=== PATIENT | female | born 1980 | race Hispanic/Latino ===

== ENCOUNTER 2019-12-28 15:19 | Day surgery (SDC) | payer OTHER ==
[2019-12-28 15:48] VITALS: BMI 34.7
[2019-12-28] MEDS ORDERED: hydrALAZINE 20 MG/ML VIAL SLOW IVP PRN (16:05)
--- NOTE | 2019-12-28 16:10 | PDOC.FPROB ---
FMR OB H&P: HPI - History of Present Illness Chief Complaint: Nausea, vomiting, diarrhea Indentification: 39yo at 33wks History of Present Illness: 39yo at 33wks presents for nausea, vomiting and diarrhea since 0330 this morning. Reports 3 episodes of vomiting, 10 episodes of nonbloody watery diarrhea. Denies recent travel, exposure to sick contacts, recent antibiotics, exposure to new foods. Denies fever. Endorses FM. Denies vaginal bleeding/ discharge, LOF, contractions. Primary Care Physician: Dr Amaya FMR OB H&P: Current - Care : 2 Para: 1 Gestational age: 34 Due date: 02/15/20 - OB Labs Blood type: O RH: positive [facility]MR OB H&P: History - Past Medical History PMH: Denies - OB History OB History: 1 19yrs ago - Surgical History Sx History: Lap Leyda and exploratory lap for endometriosis - Social History Social History: Denies alcohol, tobacco and drug use - Family History Family History: Denies FMR OB H&P: Medications - Current Home Medications: Medication Instructions Recorded Confirmed Type Ondansetron [Zofran ODT] 4 mg PO Q6HR PRN #20 tab 12/28/19 Rx Pnv No.95/Ferrous Fum/Folic AC 1 tablet PO DAILY 12/28/19 12/28/19 History [ Tablet] Allergies/Adverse Reactions: Allergies Allergy/AdvReac Type Severity Reaction Status Date / Time No Known Allergies Allergy Unverified 12/28/19 15:44 FMR OB H&P: ROS - Review of Systems General: denies: fever/chills, fatigue Eyes: denies: vision changes ENT: denies: nasal congestion, rhinorrhea Respiratory: denies: cough, congestion, shortness of breath Gastrointestinal: reports: nausea, vomiting, diarrhea. denies: abdominal pain, cramping Genitourinary (Female): denies: dysuria, vaginal discharge, vaginal bleeding, contractions Neurologic: denies: weakness Integumentary: denies: rash, lesions FMR OB H&P: Vital Signs - Maternal Vital signs: BP 112/58 HR 86 SpO2 97% Temp 98.6 - Heart Tones Baseline: 140 Variability: moderate Acceleration: present Deceleration: absent Category: category 1 FMR OB H&P: Physical Exam - Physical Exam General: NAD, awake, alert and oriented HEENT: normocephalic and atraumatic, conjunctiva clear, grossly normal hearing, oropharynx clear Deviation from normal: Moist mucus membranes Neck: supple, trachea midline Heart: RRR, no murmurs/rubs/gallops, pulses present, no edema General: CTAB, no respiratory distress, no wheezing Abdomen: soft, gravid, fundus(cm), non-tender Musculoskeletal: pulses present, no misalignment/asymmetry, no atrophy Neurological: no focal deficit Skin: no rash, capillary refill <2 seconds Lymphatic: no unusual bruising or bleeding, no petechia Psychiatric: intact recent and remote memory, good judgement and insight, normal mood and affect FMR OB H&P: A/P Disposition: 39yo at 33wks presents for n/v/d for <24hrs Zofran PRN Will start with 1L LR Pt reevaluated, did not require zofran. Was able to urinate and feeling better after 1L + 250ml LR. Reports appetite has returned, would like to go home. F/u with Dr Amaya for routine PNC Discussion: Date/Time: 12/28/19 1610 This H&P was discussed with Dr. Morrison who agrees with the above documentation and plan.
[2019-12-28] MEDS ORDERED: Lactated Ringer's 1,000 ML IV SCH (16:15)
[2019-12-28] MEDS ORDERED: Ondansetron PF 4 MG/2 ML Vial IVP SCH (16:15)
[2019-12-29] MEDS ORDERED: Ondansetron PF 4 MG/2 ML Vial IVP PRN (16:05)
== END 2019-12-28 18:09 | disposition home or self-care (01) ==
LOC: L&D/OP 15:19
PROVIDERS: ATTEND Obstetrics & Gynecology
DX: O21.2 Late vomiting of pregnancy (principal); O99.89 Other specified diseases and conditions complicating pregnancy, childbirth and the puerperium; R19.7 Diarrhea, unspecified; Z3A.33 33 weeks gestation of pregnancy
CPT/HCPCS: 96360; 96361; 99282

== ENCOUNTER 2020-02-02 19:48 | Inpatient (IN) | payer OTHER ==
[~2020-02-02 19:48] MED LIST: Bupivacaine PF 0.5% 30 ML VIAL ONE; EPHEDRINE 25 MG/5 ML SYRINGE ONE
[2020-02-02] MEDS ORDERED: hydrALAZINE 20 MG/ML VIAL SLOW IVP PRN ×2 (20:43→21:49)
[2020-02-02 20:54] LABS: Amnisure Test RUPTURE DETECTED (No Rupture)
[2020-02-02 20:55] LABS: Amnisure Internal Control QC ACCEPTABLE (ACCEPTABLE)
[2020-02-02 21:03] VITALS: BMI 34.7
[2020-02-02] MEDS ORDERED: Ondansetron PF 4 MG/2 ML Vial IVP PRN (21:49)
[2020-02-02] MEDS ORDERED: NS / Oxytocin 40 units/1000ml 1,000 ML IV PRN (21:49)
[2020-02-02] MEDS ORDERED: Ibuprofen 800 MG TAB PO PRN (21:49)
[2020-02-02] MEDS ORDERED: Lactated Ringer's 1,000 ML IV SCH (21:49)
[2020-02-02] MEDS ORDERED: Promethazine HCl 25 MG/ML VIAL IM PRN (21:49)
[2020-02-02] MEDS ORDERED: NS w/ Oxytocin 10 units 500 ML IV SCH (21:49)
[2020-02-02] MEDS ORDERED: Lidocaine 1% (PF) 30 ML VIAL SC PRN (21:49)
[2020-02-02] MEDS ORDERED: HYDROcodone/Acetaminophen 5/325 mg Tablet PO PRN ×2 (21:49)
[2020-02-02 22:22] LABS: Hemoglobin 13.5 g/dL (12.0-16.0); Mean Corpuscular HGB CONC 34.6 g/dL (32.0-36.0); Mean Corpuscular Hemoglobin 32.9 pg (27.0-31.0); Mean Corpuscular Volume 94.9 fL (78.0-98.0); Mean Platelet Volume 7.7 fL (7.4-10.4); Platelet Count 226 thou/uL (130-400); RBC Distribution Width 12.2 % (11.5-14.5); Red Blood Cell (RBC) Count 4.11 mill/uL (4.20-5.40); White Blood Cell (WBC) Count 10.4 thou/uL (4.8-10.8)
[2020-02-02] MEDS: Lactated Ringer's 1,000 ML IV SCH (22:30)
[2020-02-02 23:00] LABS: HBSAg Index 0.16 S/CO (0-0.99); Hep B Surf Ag Non-Reactive S/CO (NonReactive); Syphilis Antibody Nonreactive (Nonreactive); Syphilis Antibody Index 0.03 S/CO (<1.00 Non-Reactive)
[2020-02-03] MEDS: Butorphanol Tartrate 1 MG/ML VIAL SLOW IVP PRN ×2 (05:00→06:16)
[2020-02-03] MEDS: Lactated Ringer's 1,000 ML IV SCH ×2 (06:17→09:25)
[2020-02-03] MEDS ORDERED: Fentanyl 4 mcg/Bup 0.1% Cadd 100 ML ONE (08:15)
[2020-02-03] MEDS ORDERED: Misoprostol 200 MCG TAB ONE (13:11)
[2020-02-03] MEDS ORDERED: Lanolin Ointment 7 GM TUBE TOP PRN (13:12)
[2020-02-03] MEDS ORDERED: Misoprostol 200 MCG TAB VAG PRN (13:12)
[2020-02-03] MEDS ORDERED: Benzocaine-Menthol 82.5 ML CAN TOP PRN (13:12)
[2020-02-03] MEDS ORDERED: Preparation H Ointment 28 GM TUBE PR PRN (13:12)
[2020-02-03] MEDS ORDERED: hydrALAZINE 20 MG/ML VIAL SLOW IVP PRN (13:12)
[2020-02-03] MEDS ORDERED: Zolpidem Tartrate 5 MG TAB PO PRN (13:12)
[2020-02-03] MEDS ORDERED: Adacel (T-DAP) 0.5 ML SYRINGE IM ONE (13:12)
[2020-02-03] MEDS ORDERED: diphenhydrAMINE 25 MG CAP PO PRN (13:12)
[2020-02-03] MEDS ORDERED: Bisacodyl 10 MG SUPP PR PRN (13:12)
[2020-02-03] MEDS ORDERED: Acetaminophen/Codeine 30-300mg Tablet PO PRN ×2 (13:12)
[2020-02-03] MEDS ORDERED: Milk Of Magnesia 30 ML UDCUP PO PRN (13:12)
[2020-02-03] MEDS ORDERED: Ondansetron PF 4 MG/2 ML Vial IVP PRN ×2 (13:12→13:21)
[2020-02-03] MEDS ORDERED: NS / Oxytocin 40 units/1000ml 1,000 ML IV SCH (13:15)
[2020-02-03] MEDS ORDERED: Promethazine HCl 25 MG/ML VIAL IM PRN (13:21)
[2020-02-03] MEDS ORDERED: Acetaminophen 325 MG TAB PO PRN (13:21)
[2020-02-03] MEDS ORDERED: Naloxone HCl 0.4 mg/ml Vial IVP PRN ×2 (13:21)
[2020-02-03] MEDS ORDERED: EPHEDRINE 25 MG/5 ML SYRINGE SLOW IVP PRN (13:21)
[2020-02-03] MEDS ORDERED: Lactated Ringer's 500 ML IV PRN (13:21)
[2020-02-03] MEDS ORDERED: diphenhydrAMINE 50 MG/ML VIAL IVP PRN (13:21)
[2020-02-03] MEDS ORDERED: Fentanyl 4 mcg/Bupivacaine 0.1% Cassette 100 ML EPIDURAL SCH (13:30)
[2020-02-03] MEDS ORDERED: Communication Order-Pharmacy FS SCH (13:30)
[2020-02-03] MEDS: Ibuprofen 800 MG TAB PO SCH (16:48)
[2020-02-03] MEDS: Ferrous Sulfate 325 MG TAB PO SCH (17:38)
[2020-02-03] MEDS: Docusate Calcium (SURFAK) 240 MG CAP PO SCH (22:10)
[2020-02-04] MEDS: Ibuprofen 800 MG TAB PO SCH ×3 (00:03→14:02)
[2020-02-04] MEDS: Ferrous Sulfate 325 MG TAB PO SCH ×2 (07:34→17:00)
[2020-02-04] MEDS: Docusate Calcium (SURFAK) 240 MG CAP PO SCH (07:34)
[2020-02-04] MEDS ORDERED: Prenatal Vitamin 1 TAB PO SCH (09:00)
[2020-02-04 12:02] VITALS: BP 109/53; TEMP 97.6
== END 2020-02-04 17:00 | disposition home or self-care (01) | DRG 807 ==
LOC: L&D/OP 19:48 → L&D 21:24 → 3SW 02-03 15:57
PROVIDERS: ADMIT Obstetrics & Gynecology; ATTEND Obstetrics & Gynecology
PROC: 10E0XZZ Delivery of Products of Conception, External Approach (ICD-10-PCS; principal; 2020-02-03)
DX: O80 Encounter for full-term uncomplicated delivery (principal); Z37.0 Single live birth; Z3A.38 38 weeks gestation of pregnancy
CPT/HCPCS: 36415; 51702; 84112; 85027; 86780; 86850; 86900; 86901; 87340; 99285; J0595; J2590; S0020